=== PATIENT | male | born 1975 | race American Indian/Alaskan Native ===

== ENCOUNTER 2016-12-11 18:24 | Inpatient (IN) | payer MEDICARE, OTHER ==
--- NOTE | 2016-12-11 18:58 | Emergency Department Report ---
Chief Complaint: Fall Stated Complaint: CHECKED OUT Time Seen by Provider: 12/11/16 18:54 - HPI History of Present Illness: Patient reports the medical staff says that he had a near syncope episode. Patient doesn't have any complaints - ROS Review of Systems: all other systems are unremarkable except for documentation in HPI - Exam Vital Signs: Vital Signs 12/11/16 18:46 Temperature 98 F Pulse Rate 78 Respiratory 18 Rate Blood Pressure 153/101 O2 Sat by Pulse 97 Oximetry Physical Exam: Gen: obese, NAD Cardiac: heart sounds present S1-S2, no ectopy, murmur or gallops Resp: even and unlabored, lungs CTA remy, no wheezing, rales or rhonchi MSE screening note: Focused history and physical exam performed. Due to findings the following was ordered: laboratory studies ordered ED Disposition for MSE Condition: Stable
[2016-12-12] MEDS ORDERED: NACL 0.9% 500 ML IR ONE (07:50)
[2016-12-12] MEDS ORDERED: TENIVAC IM ONE (07:56)
[2016-12-12] MEDS ORDERED: NACL 0.9% IR ONE (08:09)
[2016-12-12] MEDS: NORMODYNE IV ONE ×2 (08:10→08:35)
--- NOTE | 2016-12-12 09:00 | XRay Report ---
Single view chest: History: Hypertension. Findings: Heart size is upper limit of normal. Trachea is midline. No consolidation, pneumothorax or pleural effusion. Impression No acute cardiopulmonary findings.
[2016-12-12 09:01] LABS: Basophils % (Auto) 0.4 % (0.0-1.8); Eosinophils % (Auto) 1.3 % (0.0-4.3); Hematocrit 38.1 % (35.5-45.6); Hemoglobin 12.3 gm/dl (11.8-15.2); Mean Corpuscular HGB Conc 32 % (32-34); Mean Corpuscular Hemoglobin 27 pg (28-32); Mean Corpuscular Volume 83 fl (84-94); Platelet Count 235 K/mm3 (140-440); Red Blood Count 4.61 M/mm3 (3.65-5.03); Red Cell Distribution Width 14.8 % (13.2-15.2); White Blood Count 11.7 K/mm3 (4.5-11.0)
--- NOTE | 2016-12-12 09:03 | Cat Scan Report ---
FINAL REPORT EXAM: CT HEAD/BRAIN WO CON HISTORY: fall pain TECHNIQUE: CT of the head was performed. No intravenous contrast was administered. PRIORS: None. 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 There is an old left basal ganglia lacunar infarct There is no evidence of intracranial hemorrhage. There is no edema, mass effect or midline shift. There are no abnormal extra-axial fluid collections. The ventricles are appropriate for brain volume. There is no skull fracture seen. There is some mild sinus mucosal thickening. IMPRESSION: There is no acute intracranial abnormality identified.
--- NOTE | 2016-12-12 09:09 | Cat Scan Report ---
FINAL REPORT EXAM: CT CERVICAL SPINE WO CON HISTORY: fall pain TECHNIQUE: CT of the Cervical Spine without IV contrast. Coronal and sagittal reformatted images were provided. PRIORS: None currently available. FINDINGS: There is no fracture. There is no subluxation. There is no atlantooccipital dislocation. Mild discogenic disease. Cervical levels do not demonstrate significant canal or foraminal narrowing. Prevertebral soft tissue structures are unremarkable. IMPRESSION: No acute fracture.
--- NOTE | 2016-12-12 09:10 | Cat Scan Report ---
FINAL REPORT EXAM: CT FACIAL BONES WO CON HISTORY: fall pain TECHNIQUE: CT of the maxillofacial region without IV contrast. Coronal and sagittal reconstructed images were provided. PRIORS: None currently available. FINDINGS: The globes are intact. There is no vitreous hemorrhage. The lenses are unremarkable. There is no retinal hemorrhage. The retro-bulbar regions are grossly negative. There is no orbital osseous fracture. Frontal sinuses are hypoplastic. Otherwise, paranasal sinuses are developed. Small retention cysts and mild mucosal thickening in the alveolar recesses of both maxillary sinuses. Mild mucosal thickening in the ethmoid sinuses. The paranasal osseous structures are intact. Nasal bridge appears intact. The nasal septum is mildly deviated There is no zygomatic arch fracture. There is no fracture of the pterygoid plates. There is no fracture of the mandible. There is no fracture the temporomandibular joints. Temporal bones are unremarkable. Mastoid aircells are aerated. IMPRESSION: No acute fracture. Mild sinus disease.
[2016-12-12 09:17] LABS: INR 1.12 (0.87-1.13)
[2016-12-12 09:18] LABS: Partial Thromboplastin Time 35.4 Sec. (24.2-36.6)
[2016-12-12 09:22] LABS: Alanine Aminotransferase 17 units/L (7-56); Albumin 4.3 g/dL (3.9-5); Albumin/Globulin Ratio 1.2 %; Alkaline Phosphatase 74 units/L (35-129); Anion Gap 20 mmol/L; BUN/Creatinine Ratio 11.42; Bilirubin,Total 0.5 mg/dL (0.1-1.2); Blood Urea Nitrogen 16 mg/dL (9-20); Calcium 8.8 mg/dL (8.4-10.2); Carbon Dioxide 27 mmol/L (22-30); Chloride 96.5 mmol/L (98-107); Glucose 98 mg/dL (75-100); Magnesium 2.3 mg/dL (1.7-2.3); Sodium 139 mmol/L (137-145); Total Protein 7.8 g/dL (6.3-8.2)
[2016-12-12 09:26] LABS: Bilirubin,Direct < 0.2 mg/dL (0-0.2)
--- NOTE | 2016-12-12 09:49 | Emergency Department Report ---
ED Fall HPI - General Chief Complaint: Fall Stated Complaint: CHECKED OUT Time Seen by Provider: 12/12/16 07:49 Source: patient, EMS Mode of arrival: Ambulatory Limitations: Other (psychiatric disorder) - History of Present Illness Initial Comments: Patient is an inpatient at the [facility]. He states that he tripped or some unknown object. However the EMS reports indicates that he had a near syncopal episode. Apparently he did a face plant-type fall. He complains of some mild neck pain but principally discomfort about his mouth and jaw. He denied any headache vertigo or dizziness. He states he did not completely pass out. However the patient is not likely to be an entirely reliable historian. He is on multiple medications at [place] to include benzodiazepine Haldol lisinopril carbamazepine Prozac Risperdal etc. he has no other active complaints. [place] any neurological change. 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 Witnessed: yes, by living facility s Place Fall Occurred: other Loss of Consciousness: other (probably momentary loss of consciousness) Prolonged Down Time?: no Symptoms Prior to Fall: none Location: face, neck Severity: moderate Context: tripped/slipped (this is uncertain as above), new medication (multiple sedating medications) Associated Symptoms: denies (septic as above indicated), shortness of breath - Related Data Allergies Allergy/AdvReac Type Severity Reaction Status Date / Time No Known Allergies Allergy Verified 12/12/16 07:59 ED Review of Systems ROS: Stated complaint: CHECKED OUT Other details as noted in HPI Constitutional: denies: chills, fever Eyes: denies: eye pain, eye discharge, vision change ENT: denies: ear pain, throat pain Respiratory: denies: cough, shortness of breath, wheezing Cardiovascular: denies: chest pain, palpitations Endocrine: no symptoms reported Gastrointestinal: denies: abdominal pain, nausea, diarrhea Genitourinary: denies: urgency, dysuria Musculoskeletal: denies: back pain, joint swelling, arthralgia Skin: denies: rash, lesions Neurological: denies: headache, weakness, paresthesias Psychiatric: denies: anxiety, depression Hematological/Lymphatic: denies: easy bleeding, easy bruising ED Past Medical Hx - Past Medical History Previous Medical History?: Yes Hx Hypertension: Yes Hx Psychiatric Treatment: Yes (schizophrenia) Additional medical history: chronic pain, - Surgical History Past Surgical History?: No - Social History Smoking Status: Current Every Day Smoker Substance Use Type: Prescribed ED Physical Exam - General Limitations: Other General appearance: in no apparent distress, lethargic - Head Head exam: Present: normocephalic - Eye Eye exam: Present: normal appearance. Absent: scleral icterus - ENT ENT exam: Present: other (abrasions about the lips and chin. Tongue abrasion.) - Neck Neck exam: Present: normal inspection, tenderness (very minimal paravertebral) - Respiratory Respiratory exam: Present: normal lung sounds bilaterally. Absent: respiratory distress - Cardiovascular Cardiovascular Exam: Present: regular rate, normal rhythm. Absent: systolic murmur, diastolic murmur, rubs, gallop - GI/Abdominal GI/Abdominal exam: Present: soft, normal bowel sounds. Absent: distended, tenderness, guarding, rebound, rigid, organomegaly, mass, bruit, pulsatile mass , hernia - Rectal Rectal exam: Present: deferred - Extremities Exam Extremities exam: Present: normal inspection. Absent: pedal edema, joint swelling, calf tenderness - Back Exam Back exam: Present: normal inspection. Absent: tenderness, CVA tenderness (L) - Neurological Exam Neurological exam: Present: CN II-XII intact. Absent: alert (a bit lethargic), oriented X3 (thinks he's in [place]), motor sensory deficit - Psychiatric Psychiatric exam: Present: normal mood, flat affect - Skin Skin exam: Present: warm, dry, intact, normal color. Absent: rash ED Course Vital Signs 12/11/16 12/12/16 12/12/16 18:46 07:14 07:40 Temperature 98 F 99.8 F H Pulse Rate 78 109 H Respiratory 18 24 Rate Blood Pressure 153/101 187/120 Blood Pressure [Left] O2 Sat by Pulse 97 97 93 Oximetry 12/12/16 12/12/16 12/12/16 07:41 08:00 08:05 Temperature Pulse Rate 99 H Respiratory 14 22 Rate Blood Pressure 171/103 166/102 Blood Pressure 166/102 [Left] O2 Sat by Pulse 97 97 Oximetry 12/12/16 12/12/16 12/12/16 08:10 08:52 09:00 Temperature Pulse Rate 91 H Respiratory 22 Rate Blood Pressure 171/103 147/81 160/88 Blood Pressure [Left] O2 Sat by Pulse 94 94 89 Oximetry - Reevaluation(s) Reevaluation #1: The patient's radiographic workup was essentially negative. After that was finished she was found to be somewhat somnolent. He has snoring. A blood gas was obtained. He had no evidence of hypercapnia. However, he remained somewhat difficult to arouse. His blood pressure was still high. It was decided that he would be admitted for further care and evaluation. 12/12/16 11:01 ED Medical Decision Making - Lab Data Result diagrams: 12/12/16 08:40 12/12/16 08:40 Laboratory Results - last 24 hr 12/12/16 12/12/16 12/12/16 08:40 08:40 08:40 WBC 11.7 H RBC 4.61 Hgb 12.3 Hct 38.1 MCV 83 L MCH 27 L MCHC 32 RDW 14.8 Plt Count 235 Lymph % (Auto) 8.0 L [place] % (Auto) 10.2 H Eos % (Auto) 1.3 Baso % (Auto) 0.4 Lymph # 0.9 L [place] # 1.2 H Eos # 0.1 Baso # 0.0 Seg Neutrophils % 80.1 H Seg Neutrophils # 9.4 H PT 14.3 INR 1.12 APTT 35.4 Sodium 139 Potassium 4.0 Chloride 96.5 L Carbon Dioxide 27 Anion Gap 20 BUN 16 Creatinine 1.4 Estimated GFR > 60 BUN/Creatinine Ratio 11.42 Glucose 98 Calcium 8.8 Magnesium 2.3 Total Bilirubin 0.5 Direct Bilirubin < 0.2 AST 18 ALT 17 Alkaline Phosphatase 74 NT-Pro-B Natriuret Pep 73.19 Total Protein 7.8 Albumin 4.3 Albumin/Globulin Ratio 1.2 - EKG Data -: EKG Interpreted by Id EKG shows normal: sinus rhythm, axis, intervals, QRS complexes, ST-T waves Rate: normal - EKG Data Interpretation: other (no ischemic changes) - Radiology Data Radiology results: report reviewed Critical care attestation.: If time is entered above; I have spent that time in minutes in the direct care of this critically ill patient, excluding procedure time. ED Disposition Clinical Impression: Poorly-controlled hypertension, Psychiatric disorder Syncope Qualifiers: Syncope type: unspecified Qualified Code(s): R55 - Syncope and collapse Altered mental status Qualifiers: Altered mental status type: somnolence Qualified Code(s): R40.0 - Somnolence Disposition: OP ADMITTED IP TO THIS HOSP Is pt being admited?: Yes Does the pt Need Aspirin: Yes Condition: Stable Instructions: Syncope (ED) Time of Disposition: 11:06
[2016-12-12 10:36] LABS: ISTAT Base Excess 0; ISTAT DEVICE 0; ISTAT HCO3 25.6; ISTAT PCO2 44.7 (35-45); ISTAT PH 7.366 (7.35-7.45); ISTAT PO2 67 (80-105); ISTAT SO2 92; ISTAT TCO2 27
[2016-12-12] MEDS ORDERED: BABY ASPIRIN PO ONE (11:07)
--- NOTE | 2016-12-13 05:43 | Event Note ---
Date: 12/12/16 See H/p in reports
--- NOTE | 2016-12-13 07:21 | History and Physical Report ---
CHIEF COMPLAINT: Passed out for a few seconds. HISTORY OF PRESENT ILLNESS: A 41-year-old -[place] male resident at [facility], brought in for syncope. Per EMS, the patient had syncope. The patient states that he may have tripped and fell down. He fell face forward and had small abrasions to the face. The patient states he did not completely pass out, but not a reliable historian. The patient has hypertension, schizophrenia, seizure disorder. No altered sensorium. CURRENT MEDICATIONS: Tegretol 100 mg twice a day, atenolol 25 mg daily, fluoxetine 40 mg daily, haloperidol 20 mg p.o. t.i.d., lisinopril 20 mg p.o. daily, Respirdal 1 mg p.o. b.i.d., and benztropine 1 mg p.o. b.i.d. PAST MEDICAL HISTORY: As mentioned, significant for hypertension; schizophrenia; chronic pain. SURGICAL HISTORY: None. SOCIAL HISTORY: He smokes a pack a day. FAMILY HISTORY: Significant for hypertension. REVIEW OF SYSTEMS: CONSTITUTIONAL: No weight loss, no weight gain. HEENT: Abrasion about the lips and the chin and a tongue abrasion secondary to fall. NECK: No neck stiffness, no neck pain. RESPIRATORY: No cough. No wheezing. CVS: No chest pain, no palpitations, no diaphoresis. GASTROINTESTINAL: No nausea, no vomiting, no diarrhea. MUSCULOSKELETAL: No joint pains. No muscle pains or weakness. 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 No seizures or focal deficits. SKIN: Abrasions to the face. A 14-point review of systems otherwise negative other than syncope. PHYSICAL EXAMINATION: GENERAL: Young male, obese. VITAL SIGNS: Blood pressure 171/103 and 166/102, temperature is 98, pulse is 78, respiratory rate is 18. HEENT: Abrasions to the face around the chin and the lips and to the tongue. Small abrasions, 1 cm x 1 cm. NECK: Supple, no lymphadenopathy, no thyromegaly. LUNGS: Clear to auscultation and percussion. No chest wall tenderness present. CVS: S1, S2 heard. No gallop, no murmur, no rub. Apical impulse in left fifth intercostal space and midclavicular line. ABDOMEN: Soft and benign. No hepatosplenomegaly. No guarding, no rigidity. Hernial orifices are normal. EXTREMITIES: Good pedal pulses. No pedal edema. CENTRAL NERVOUS SYSTEM: Alert and oriented x 4, nonfocal exam. LABORATORY DATA: Reviewed. White count is 11,700. H and H is 12.3 and 38.1. Electrolytes are normal. Protime, PTT is 35.4 and INR is 1.12. EKG shows sinus rhythm. Normal QRS complexes and nonspecific ST-T wave changes. CT head is normal. ASSESSMENT AND PLAN: 1. Syncope. The patient to get a carotid duplex scan. Lexiscan not ordered as there was no chest pain and it was a pure syncope and it was possibly a fall after tripping over an object. But per history, the workup is for syncope. 2. Hypertension. Continue atenolol 25 mg daily and lisinopril 20 mg p.o. daily. 3. Seizure disorder. Continue Tegretol 100 mg twice a day. 4. Schizophrenia. Continue Risperdal 1 mg b.i.d. and also Prozac 40 mg p.o. daily along with haloperidol 20 mg t.i.d. 5. DVT prophylaxis, Lovenox 40 mg subcutaneous daily. DISCHARGE PLANNING ISSUES: The patient may be discharged if the carotid duplex scan is negative. The patient will be discharged back to [place]. Lexiscan not ordered. JOB# [id number] VSM/NTS
--- NOTE | 2016-12-13 08:03 | Admit Criteria Form ---
Admission Criteria Documentation: SYNCOPE Clinical Indications for Admission to Inpatient Care ( Place 'X' for any and all applicable criteria): Admission is indicated for syncope and ANY ONE of the following (1)(2)(3)(4)(5) (6)(7) : [X]I. Inpatient admission required rather than observation care (Also use Syncope: Observation Care Criteria as appropriate) because of ANY ONE of the following: [ ]a) Hemodynamic instability that is severe or persistent [ ]b) Cardiac arrhythmias of immediate concern identified or strongly suspected (eg, needs electrophysiologic study) [ ]c) Acute coronary syndrome identified (Also use Myocardial Infarction or Angina Criteria form ) [ ]d) Structural cardiac disorder (eg, aortic stenosis) suspected as cause that requires immediate correction [ ]e) Respiratory symptoms (eg, dyspnea, tachypnea) that are severe or persistent [ ]f) Neurologic signs or symptoms that are severe or persistent ( eg, stroke, seizures, altered mental status) [ ]g) Severe electrolyte abnormalities requiring inpatient care [ ]h) Supplemental oxygen or respiratory treatment for over 24 hrs that are performable only in acute inpatient setting [ ]i) IV fluid to replace significant ongoing (eg, for over 24 hrs ) losses (>3 L/m2 per day) [ ]j) Continuous intravenous infusion of anticoagulation, platelet inhibitor, vasoactive, or antiarrhythmic medication(15)(16) [ ]k) Pulmonary artery catheter monitoring [ ]l) Temporary pacemaker placement(17) [ ]m) Emergent cardioversion(18) [X]n) Other conditions, treatment or monitoring requiring inpatient admission [ ]II. Suspicion of imminently dangerous cause (eg, rare causes like pericardial tamponade, pulmonary embolism) [ ]III. Syncope causing severe injury requiring hospitalization Extended stay beyond goal length of stay may be needed for(28) [ ]a) Dangerous arrhythmia(15)(23)(27)(29) [ ]b) Myocardial ischemia [ ]c) Seizure disorder [ ]d) Syncope-related injuries The original Guide content created by [employer] has been revised. The portions of the content which have been revised are identified through the use of italic text or in bold, and [employer] has neither reviewed nor approved the modified material. All other unmodified content is copyright [employer]. Please see references footnoted in the original [facility] edition 2016 Admission Criteria Met: Yes
[2016-12-13] MEDS: HALDOL PO SCH ×2 (08:38→17:04)
[2016-12-13] MEDS ORDERED: RisperDAL PO SCH (10:00)
[2016-12-13] MEDS ORDERED: NON-FORMULARY (Fluoxetine Hcl [Prozac] 40 MG) PO SCH (10:00)
[2016-12-13] MEDS ORDERED: PROzac PO SCH (10:00)
[2016-12-13] MEDS ORDERED: COGENTIN PO SCH (10:00)
[2016-12-13] MEDS ORDERED: ZESTRIL PO SCH (10:00)
[2016-12-13] MEDS ORDERED: TENORMIN PO SCH (10:00)
[2016-12-13] MEDS ORDERED: FLUARIX QUAD 2016-2017(36 MOS+) IM ONE (12:00)
--- NOTE | 2016-12-13 12:59 | Progress Note ---
Assessment and Plan Assessment and plan: Patient is a 41-year-old man from [facility] with a history of schizophrenia, tobacco dependency and hypertension who presents with transient loss of consciousness after a mechanical fall in hitting his face. CT of the face without contrast shows no acute fractures, mild sinus disease CT cervical spine without contrast: No acute fractures CT of the brain without contrast: No acute intracranial abnormalities 12/13/2016 carotid Dopplers poor study due to movement but no significant stenosis seen 1. Syncope, or posttraumatic concussion Most likely 2. Schizophrenia 3. Hypertension chronic and stable History Interval history: Patient seen and examined. Follow up on syncope which has resolved. Overnight uneventful. No cp, sob, n/v or severe headaches. Imaging, old records, testing, labs, nursing notes reviewed. Hospitalist Physical - Physical exam Narrative exam: GEN: WDWN, NAD, AWAKE, ALERT, ORIENTATED HEENT: Facial trauma with abrasions and bruises PERRL, EOMI, OP CLEAR CVS: RRR, NORMAL S1S2 LUNGS/CHEST: CTA B, NORMAL CHEST EXPANSION B, GOOD AIR ENTRY B ABD: SOFT NTND, GBS, NO REBOUND OR GUARDING EXT/SKIN: NO SIGNIFICANT EDEMA OR RASH MSK: FROM X 4 EXTREMITIES NEURO: CN 2-12 GROSSLY INTACT, NO FOCAL DEFICITS PSY: CALM - Constitutional Vitals: Temp Pulse Resp BP Pulse Ox 98.7 F 101 H 22 144/82 99 12/13/16 08:05 12/13/16 08:05 12/13/16 08:05 12/13/16 08:05 12/13/16 08:05 Results - Labs CBC & Chem 7: 12/12/16 08:40 12/12/16 08:40 Labs: Laboratory Last Values WBC 11.7 K/mm3 (4.5-11.0) H 12/12/16 08:40 RBC 4.61 M/mm3 (3.65-5.03) 12/12/16 08:40 Hgb 12.3 gm/dl (11.8-15.2) 12/12/16 08:40 Hct 38.1 % (35.5-45.6) 12/12/16 08:40 MCV 83 fl (84-94) L 12/12/16 08:40 MCH 27 pg (28-32) L 12/12/16 08:40 MCHC 32 % (32-34) 12/12/16 08:40 RDW 14.8 % (13.2-15.2) 12/12/16 08:40 Plt Count 235 K/mm3 (140-440) 12/12/16 08:40 Lymph % (Auto) 8.0 % (13.4-35.0) L 12/12/16 08:40 [place] % (Auto) 10.2 % (0.0-7.3) H 12/12/16 08:40 Eos % (Auto) 1.3 % (0.0-4.3) 12/12/16 08:40 Baso % (Auto) 0.4 % (0.0-1.8) 12/12/16 08:40 Lymph # 0.9 K/mm3 (1.2-5.4) L 12/12/16 08:40 [place] # 1.2 K/mm3 (0.0-0.8) H 12/12/16 08:40 Eos # 0.1 K/mm3 (0.0-0.4) 12/12/16 08:40 Baso # 0.0 K/mm3 (0.0-0.1) 12/12/16 08:40 Seg Neutrophils % 80.1 % (40.0-70.0) H 12/12/16 08:40 Seg Neutrophils # 9.4 K/mm3 (1.8-7.7) H 12/12/16 08:40 PT 14.3 Sec. (12.2-14.9) 12/12/16 08:40 INR 1.12 (0.87-1.13) 12/12/16 08:40 APTT 35.4 Sec. (24.2-36.6) 12/12/16 08:40 POC ABG pH 7.366 (7.35-7.45) 12/12/16 10:31 POC ABG pCO2 44.7 (35-45) 12/12/16 10:31 POC ABG pO2 67 (80-105) L 12/12/16 10:31 POC ABG HCO3 25.6 12/12/16 10:31 POC ABG Total CO2 27 12/12/16 10:31 POC ABG O2 Sat 92 12/12/16 10:31 POC ABG Base Excess 0 12/12/16 10:31 FiO2 21 % 12/12/16 10:31 Sodium 139 mmol/L (137-145) 12/12/16 08:40 Potassium 4.0 mmol/L (3.6-5.0) 12/12/16 08:40 Chloride 96.5 mmol/L (98-107) L 12/12/16 08:40 Carbon Dioxide 27 mmol/L (22-30) 12/12/16 08:40 Anion Gap 20 mmol/L 12/12/16 08:40 BUN 16 mg/dL (9-20) 12/12/16 08:40 Creatinine 1.4 mg/dL (0.8-1.5) 12/12/16 08:40 Estimated GFR > 60 ml/min 12/12/16 08:40 BUN/Creatinine Ratio 11.42 % 12/12/16 08:40 Glucose 98 mg/dL (75-100) 12/12/16 08:40 Calcium 8.8 mg/dL (8.4-10.2) 12/12/16 08:40 Magnesium 2.3 mg/dL (1.7-2.3) 12/12/16 08:40 Total Bilirubin 0.5 mg/dL (0.1-1.2) 12/12/16 08:40 Direct Bilirubin < 0.2 mg/dL (0-0.2) 12/12/16 08:40 AST 18 units/L (5-40) 12/12/16 08:40 ALT 17 units/L (7-56) 12/12/16 08:40 Alkaline Phosphatase 74 units/L (35-129) 12/12/16 08:40 NT-Pro-B Natriuret Pep 73.19 pg/mL (0-450) 12/12/16 08:40 Total Protein 7.8 g/dL (6.3-8.2) 12/12/16 08:40 Albumin 4.3 g/dL (3.9-5) 12/12/16 08:40 Albumin/Globulin Ratio 1.2 % 12/12/16 08:40 - Imaging and Cardiology CT Scan - head: report reviewed
--- NOTE | 2016-12-13 13:01 | Discharge Summary ---
Providers - Providers Date of Admission: 12/12/16 11:11 Attending physician: GARLAND DUMONT 12/13/16 09:20 Consult to Mental Health [CONS] Routine Reason For Exam: delusions Place consult to:: Mireya Notified:: yes Phone number called:: [phone] Was contact made?: Yes If yes, spoke with:: SOPHIA 12/13/16 09:21 Physical Therapy Evaluation and Treat [CONS] Routine Comment: Reason For Exam: weakness Primary care physician: [employer] Hospitalization Condition: Stable Hospital course: Patient is a 41-year-old man from [facility] with a history of schizophrenia, tobacco dependency and hypertension who presents with transient loss of consciousness after a mechanical fall in hitting his face. CT of the face without contrast shows no acute fractures, mild sinus disease CT cervical spine without contrast: No acute fractures CT of the brain without contrast: No acute intracranial abnormalities 12/13/2016 carotid Dopplers poor study due to movement but no significant stenosis seen 1. Syncope, or posttraumatic concussion Most likely 2. Schizophrenia 3. Hypertension chronic and stable Discharge back to [place] Time of discharge 33 minutes Disposition: DC/TX PSY HOSP/PSY UNIT Core Measure Documentation - Palliative Care Palliative Care/ Comfort Measures: Not Applicable - Core Measures Any of the following diagnoses?: none - VTE Discharge Requirements Deep Vein Thrombosis/Pulmonary Embolism Present on Admission: No Has pt received <5 days of overlap therapy or INR<2.0: No Anticoagulant overlap therapy prescribed at discharge: No Contraindication No Overlap Therapy order at DC: Not Indicated Exam - Physical Exam Narrative exam: GEN: WDWN, NAD, AWAKE, ALERT, ORIENTATED HEENT: Facial trauma with abrasions and bruises PERRL, EOMI, OP CLEAR CVS: RRR, NORMAL S1S2 LUNGS/CHEST: CTA B, NORMAL CHEST EXPANSION B, GOOD AIR ENTRY B ABD: SOFT NTND, GBS, NO REBOUND OR GUARDING EXT/SKIN: NO SIGNIFICANT EDEMA OR RASH MSK: FROM X 4 EXTREMITIES NEURO: CN 2-12 GROSSLY INTACT, NO FOCAL DEFICITS PSY: CALM - Constitutional Vitals: Temp Pulse Resp BP Pulse Ox 98.7 F 101 H 22 144/82 99 12/13/16 08:05 12/13/16 08:05 12/13/16 08:05 12/13/16 08:05 12/13/16 08:05 Plan Activity: advance as tolerated (no strenous activites until cleared by PCP. ) Diet: low salt Special Instructions: smoking cessation Follow up with: PRIMARY CARE, [Primary Care Provider] - 3-5 Days
[2016-12-13 13:09] VITALS: BP 157/97
--- NOTE | 2016-12-15 14:31 | Vascular Lab Report ---
CAROTID DUPLEX STUDY: RIGHT PSVEDV CCA PROX:[id number] CCA DIST:[id number] ICA PROX:8628 ICA MID:8135 ICA DIST:7224 ECA: [id number] VERT: 60 18 LEFT PSVEDV CCA PROX:[id number] CCA DIST:[id number] ICA PROX:[id number] ICA MID:5721 ICA DIST:6027 ECA: [id number] VERT: 61 26 REASON FOR EXAM: Carotid artery stenosis/syncope. COMMENTS ON THE RIGHT: Doppler frequency analysis is consistent with 16 to 49 percent diameter reduction of the internal carotid artery. Minimal amount of plaque is seen. The common carotid artery is patent. The external carotid artery is patent. The vertebral artery has antegrade flow. COMMENTS ON THE LEFT: Doppler frequency analysis is consistent with 16 to 49 percent diameter reduction of the internal carotid artery. Minimal amount of plaque is seen. The common carotid artery is patent. The external carotid artery is patent. The vertebral artery has antegrade flow. IMPRESSION: Less than 50% diameter reduction in the internal carotid arteries bilaterally. Consider repeat carotid artery duplex in 12 months.
== END 2016-12-13 18:40 | DRG 312 ==
LOC: ED 18:24 → 3A 12-12 11:11
PROVIDERS: ADMIT Internal Medicine; ATTEND Internal Medicine
DX: R55 Syncope and collapse (principal); S06.0X9A Concussion with loss of consciousness of unspecified duration, initial encounter; I10 Essential (primary) hypertension; F20.9 Schizophrenia, unspecified; G89.29 Other chronic pain; F17.210 Nicotine dependence, cigarettes, uncomplicated; G40.909 Epilepsy, unspecified, not intractable, without status epilepticus; W01.0XXA Fall on same level from slipping, tripping and stumbling without subsequent striking against object, initial encounter; Z82.49 Family history of ischemic heart disease and other diseases of the circulatory system; Y93.89 Activity, other specified; Y92.89 Other specified places as the place of occurrence of the external cause; Y99.8 Other external cause status
CPT/HCPCS: 36415; 70450; 70486; 71010; 72125; 80048; 80074; 82803; 83735; 83880; 85025; 85610; 85730; 90471; 90686; 90714; 93005; 93010; 93880; 96374; 99406